=== PATIENT | male | born 2000 | race Caucasian/White ===

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

== ENCOUNTER → 2025-09-15 | Outpatient (REF) | payer OTHER | LOC: M SFHCCLAY 14:51 | PROVIDERS: ATTEND Family Medicine | DX: R19.7 Diarrhea, unspecified (principal) ==